=== PATIENT | female | born 1990 | race Caucasian/White ===

== ENCOUNTER 2018-03-05 18:54 | Emergency (ER) | payer SELFPAY | END 2018-03-05 19:23 | disposition home or self-care (01) | LOC: SCSER 18:54 | DX: M54.5 Low back pain (principal); F17.210 Nicotine dependence, cigarettes, uncomplicated | CPT/HCPCS: 99282 ==

== ENCOUNTER 2020-10-26 10:18 | Inpatient (IN) | payer BC, SELFPAY ==
[2020-10-26] MEDS ORDERED: HYDROcodone/Acetaminophen 5/325 mg Tablet ONE (12:38)
[2020-10-26] MEDS ORDERED: Dexamethasone 10 MG/ML VIAL ONE (12:38)
[2020-10-26] MEDS ORDERED: Diazepam 5 MG TAB ONE (12:38)
[2020-10-26] MEDS ORDERED: Fentanyl 100 MCG/2 ML VIAL ONE ×2 (13:49→14:58)
[2020-10-26] MEDS ORDERED: Ketorolac Tromethamine 30 MG/ML VIAL ONE (13:49)
[2020-10-26] MEDS ORDERED: Acetaminophen 650 MG Suppository PR PRN (19:05)
[2020-10-26] MEDS ORDERED: Bisacodyl 10 MG SUPP PR PRN (19:05)
[2020-10-26 20:00] LABS: #Basophils 0.1 thou/uL (0.0-0.2); #Lymphocytes 1.1 thou/uL (1.20-3.40); #Monocytes 0.1 thou/uL (0.11-0.59); %Basophils 0.8 % (0.0-1.0); %Eosinophils 0.2 % (0.0-10.0); %Monocytes 0.5 % (0.0-10.0); %Neutrophils 88.5 % (42.0-75.0); Hemoglobin 15.7 g/dL (12.0-16.0); Mean Corpuscular Hemoglobin 29.6 pg (27.0-31.0); Mean Corpuscular Volume 92.6 fL (78.0-98.0); Mean Platelet Volume 11.6 fL (7.4-10.4); Platelet Count 162 thou/uL (130-400); RBC Distribution Width 13.2 % (11.5-14.5); Red Blood Cell (RBC) Count 5.31 mill/uL (4.20-5.40); White Blood Cell (WBC) Count 11.3 thou/uL (4.8-10.8)
[2020-10-26 20:19] LABS: ALT (SGPT) 33 U/L (8-55); AST (SGOT) 22 U/L (5-34); Albumin 4.1 g/dL (3.5-5.0); Alkaline Phosphatase 115 U/L (40-110); Anion Gap 12 mmol/L (10-20); BUN (Urea Nitrogen) 12 mg/dL (7.0-18.7); Bilirubin, Total 0.3 mg/dL (0.2-1.2); Calc. Creatinine Clearance 0 mL/min (70-130); Calcium 8.7 mg/dL (7.8-10.44); Carbon Dioxide 21 mmol/L (22-29); Chloride 107 mmol/L (98-107); Globulin 3.4 g/dL (2.4-3.5); Glucose 143 mg/dL (70-105); Magnesium 2.2 mg/dL (1.6-2.6); Potassium 4.2 mmol/L (3.5-5.1); Protein, Total 7.5 g/dL (6.0-8.3); Sodium 136 mmol/L (136-145)
[2020-10-26] MEDS: Sodium Chloride 0.9% 1,000 ML IV SCH (22:28)
[2020-10-26] MEDS: Methocarbamol 500 MG TAB PO PRN (22:28)
[2020-10-26] MEDS: Famotidine/PF 20 mg/2ml Vial SLOW IVP SCH (22:29)
[2020-10-26] MEDS ORDERED: Fentanyl 100 MCG/2 ML VIAL SLOW IVP SCH (23:30)
[2020-10-26] MEDS: Ketorolac Tromethamine 30 MG/ML VIAL IVP SCH (23:38)
[2020-10-27] MEDS: Ketorolac Tromethamine 30 MG/ML VIAL IVP SCH ×4 (05:24→23:52)
[2020-10-27] MEDS: Methocarbamol 500 MG TAB PO PRN ×2 (06:03→21:45)
[2020-10-27 07:44] LABS: #Lymphocytes 1.3 thou/uL (1.20-3.40); #Monocytes 0.4 thou/uL (0.11-0.59); %Basophils 0.3 % (0.0-1.0); %Eosinophils 0.2 % (0.0-10.0); %Lymphocytes 13.6 % (21.0-51.0); %Monocytes 4.3 % (0.0-10.0); %Neutrophils 81.6 % (42.0-75.0); Hemoglobin 14.5 g/dL (12.0-16.0); Mean Corpuscular HGB CONC 31.3 g/dL (32.0-36.0); Mean Corpuscular Hemoglobin 28.6 pg (27.0-31.0); Mean Corpuscular Volume 91.5 fL (78.0-98.0); Platelet Count 166 thou/uL (130-400); RBC Distribution Width 13.1 % (11.5-14.5); Red Blood Cell (RBC) Count 5.06 mill/uL (4.20-5.40); White Blood Cell (WBC) Count 9.9 thou/uL (4.8-10.8)
[2020-10-27 08:04] LABS: ALT (SGPT) 24 U/L (8-55); AST (SGOT) 16 U/L (5-34); Albumin 3.7 g/dL (3.5-5.0); Alkaline Phosphatase 98 U/L (40-110); Anion Gap 12 mmol/L (10-20); BUN (Urea Nitrogen) 14 mg/dL (7.0-18.7); Bilirubin, Total 0.2 mg/dL (0.2-1.2); Calc. Creatinine Clearance 0 mL/min (70-130); Calcium 8.6 mg/dL (7.8-10.44); Carbon Dioxide 18 mmol/L (22-29); Chloride 110 mmol/L (98-107); Glucose 122 mg/dL (70-105); Potassium 4.3 mmol/L (3.5-5.1); Protein, Total 6.7 g/dL (6.0-8.3); Sodium 136 mmol/L (136-145)
[2020-10-27] MEDS: Sodium Chloride 0.9% 1,000 ML IV SCH ×3 (08:50→23:47)
[2020-10-27] MEDS: Famotidine/PF 20 mg/2ml Vial SLOW IVP SCH ×2 (08:51→21:05)
[2020-10-27] MEDS: Cyclobenzaprine 10 MG TAB PO PRN ×2 (11:25→18:54)
[2020-10-27] MEDS: Gabapentin 100 MG CAP PO SCH ×2 (14:02→21:04)
[2020-10-27 16:14] LABS: SARS-CoV-2 PCR NAA for Saliva Not Detected (NotDetected)
[2020-10-27] MEDS: Acetaminophen 325 MG TAB PO PRN (21:08)
[2020-10-28] MEDS: Sodium Chloride 0.9% 1,000 ML IV SCH ×3 (02:23→17:34)
[2020-10-28 03:43] LABS: Hemoglobin 13.7 g/dL (12.0-16.0); Mean Corpuscular HGB CONC 32.2 g/dL (32.0-36.0); Mean Corpuscular Volume 93.4 fL (78.0-98.0); Platelet Count 150 thou/uL (130-400); RBC Distribution Width 13.2 % (11.5-14.5); Red Blood Cell (RBC) Count 4.55 mill/uL (4.20-5.40); White Blood Cell (WBC) Count 10.6 thou/uL (4.8-10.8)
[2020-10-28 03:51] LABS: Lactic Acid 1.5 mmol/L (0.5-2.2)
[2020-10-28] MEDS: Methocarbamol 500 MG TAB PO PRN ×2 (03:54→20:35)
[2020-10-28] MEDS: Acetaminophen 325 MG TAB PO PRN (03:54)
[2020-10-28 03:56] LABS: #Basophils 0.1 thou/uL (0.0-0.2); #Lymphocytes 3.3 thou/uL (1.20-3.40); #Monocytes 0.7 thou/uL (0.11-0.59); #Neutrophils 6.5 thou/uL (1.40-6.50); %Basophils 0.8 % (0.0-1.0); %Eosinophils 0.3 % (0.0-10.0); %Lymphocytes 30.8 % (21.0-51.0); Large Platelets SLIGHT; MDiff Complete? YES; Platelet Morphology Comment Appears Adequate
[2020-10-28 04:10] LABS: ALT (SGPT) 29 U/L (8-55); AST (SGOT) 21 U/L (5-34); Albumin 3.1 g/dL (3.5-5.0); Alkaline Phosphatase 82 U/L (40-110); Anion Gap 11 mmol/L (10-20); BUN (Urea Nitrogen) 15 mg/dL (7.0-18.7); Bilirubin, Total Less than 0.2 mg/dL (0.2-1.2); Calc. Creatinine Clearance 0 mL/min (70-130); Calcium 7.6 mg/dL (7.8-10.44); Carbon Dioxide 18 mmol/L (22-29); Chloride 113 mmol/L (98-107); Globulin 2.6 g/dL (2.4-3.5); Glucose 145 mg/dL (70-105); Magnesium 2.1 mg/dL (1.6-2.6); Potassium 4.1 mmol/L (3.5-5.1); Protein, Total 5.7 g/dL (6.0-8.3); Sodium 138 mmol/L (136-145)
[2020-10-28] MEDS: Ketorolac Tromethamine 30 MG/ML VIAL IVP SCH (05:30)
[2020-10-28] MEDS: Gabapentin 300 MG CAP PO SCH ×3 (08:35→20:33)
[2020-10-28] MEDS: HYDROcodone/Acetaminophen 5/325 mg Tablet PO PRN ×4 (08:36→23:42)
[2020-10-28] MEDS: Famotidine/PF 20 mg/2ml Vial SLOW IVP SCH ×2 (08:37→20:32)
[2020-10-28] MEDS: Senokot S 8.6-50 MG TAB PO SCH ×2 (08:37→20:36)
[2020-10-28] MEDS ORDERED: Dexamethasone 12 MG in Sodium Chloride 0.9% 50 ML IVPB SCH (09:00)
[2020-10-29] MEDS: Sodium Chloride 0.9% 1,000 ML IV SCH (03:41)
[2020-10-29] MEDS: Gabapentin 300 MG CAP PO SCH ×3 (08:02→21:24)
[2020-10-29] MEDS: HYDROcodone/Acetaminophen 5/325 mg Tablet PO PRN ×4 (08:03→21:36)
[2020-10-29] MEDS: Famotidine/PF 20 mg/2ml Vial SLOW IVP SCH ×2 (08:04→21:24)
[2020-10-29] MEDS: Senokot S 8.6-50 MG TAB PO SCH ×2 (08:09→21:23)
[2020-10-29] MEDS: Methocarbamol 500 MG TAB PO PRN ×3 (10:35→23:12)
[2020-10-29] MEDS ORDERED: Dexamethasone 10 MG/ML VIAL ONE (13:05)
[2020-10-29] MEDS ORDERED: Lidocaine 2% PF 5 ML VIAL ONE (13:05)
[2020-10-29] MEDS ORDERED: Iopamidol-M 300 61% 15 ML VIAL ONE (13:05)
[2020-10-29] MEDS ORDERED: Bupivacaine 0.25% 10 ML VIAL ONE (13:05)
[2020-10-30] MEDS: Senokot S 8.6-50 MG TAB PO SCH ×2 (08:30→19:41)
[2020-10-30] MEDS: Gabapentin 300 MG CAP PO SCH ×3 (08:31→19:59)
[2020-10-30] MEDS: Famotidine/PF 20 mg/2ml Vial SLOW IVP SCH ×2 (08:31→19:59)
[2020-10-30] MEDS: HYDROcodone/Acetaminophen 5/325 mg Tablet PO PRN ×4 (08:43→22:30)
[2020-10-30] MEDS: Methocarbamol 500 MG TAB PO PRN ×3 (10:29→20:00)
[2020-10-31] MEDS: HYDROcodone/Acetaminophen 5/325 mg Tablet PO PRN ×4 (05:05→20:23)
[2020-10-31] MEDS: Methocarbamol 500 MG TAB PO PRN ×3 (05:48→16:21)
[2020-10-31 06:09] LABS: Hemoglobin 14.9 g/dL (12.0-16.0); Mean Corpuscular HGB CONC 31.5 g/dL (32.0-36.0); Mean Corpuscular Hemoglobin 28.6 pg (27.0-31.0); Mean Corpuscular Volume 90.8 fL (78.0-98.0); Mean Platelet Volume 12.3 fL (7.4-10.4); Platelet Count 147 thou/uL (130-400); RBC Distribution Width 13.1 % (11.5-14.5); Red Blood Cell (RBC) Count 5.23 mill/uL (4.20-5.40); White Blood Cell (WBC) Count 14.8 thou/uL (4.8-10.8)
[2020-10-31 06:11] LABS: Anion Gap 13 mmol/L (10-20); BUN (Urea Nitrogen) 19 mg/dL (7.0-18.7); Calc. Creatinine Clearance 0 mL/min (70-130); Calcium 7.9 mg/dL (7.8-10.44); Carbon Dioxide 21 mmol/L (22-29); Chloride 107 mmol/L (98-107); Glucose 101 mg/dL (70-105); Potassium 3.9 mmol/L (3.5-5.1); Sodium 137 mmol/L (136-145)
[2020-10-31 06:12] LABS: Lymphocytes 49 % (21-51); Monocytes 4 % (0-10); Neutrophil 47 % (42-75)
[2020-10-31 06:21] LABS: MDiff Complete? YES
[2020-10-31] MEDS: Famotidine/PF 20 mg/2ml Vial SLOW IVP SCH ×2 (08:47→20:23)
[2020-10-31] MEDS: Senokot S 8.6-50 MG TAB PO SCH ×2 (08:48→20:22)
[2020-10-31] MEDS: Gabapentin 300 MG CAP PO SCH ×3 (08:48→20:23)
[2020-11-01] MEDS: Cyclobenzaprine 10 MG TAB PO PRN ×2 (00:11→12:11)
[2020-11-01] MEDS: HYDROcodone/Acetaminophen 5/325 mg Tablet PO PRN ×6 (00:11→22:02)
[2020-11-01] MEDS: Senokot S 8.6-50 MG TAB PO SCH ×2 (08:18→20:43)
[2020-11-01] MEDS: Gabapentin 300 MG CAP PO SCH ×3 (08:18→20:43)
[2020-11-01] MEDS: Famotidine/PF 20 mg/2ml Vial SLOW IVP SCH ×2 (08:19→20:43)
[2020-11-01] MEDS: Methocarbamol 500 MG TAB PO PRN ×3 (10:08→20:43)
[2020-11-01] MEDS ORDERED: Sodium Chloride 0.9% 500 ML IV SCH (21:30)
[2020-11-01] MEDS: Sodium Chloride 0.9% 1,000 ML IV SCH (22:03)
[2020-11-02] MEDS: Famotidine/PF 20 mg/2ml Vial SLOW IVP SCH ×2 (08:33→20:15)
[2020-11-02] MEDS: HYDROcodone/Acetaminophen 5/325 mg Tablet PO PRN ×4 (08:33→21:29)
[2020-11-02] MEDS: Gabapentin 300 MG CAP PO SCH ×3 (08:33→20:14)
[2020-11-02] MEDS: Sodium Chloride 0.9% 1,000 ML IV SCH ×4 (08:34→12:21)
[2020-11-02] MEDS: Senokot S 8.6-50 MG TAB PO SCH ×2 (08:35→20:21)
[2020-11-02] MEDS: Methocarbamol 500 MG TAB PO PRN ×2 (09:59→20:14)
[2020-11-02] MEDS: Cyclobenzaprine 10 MG TAB PO PRN (14:50)
[2020-11-03] MEDS: Sodium Chloride 0.9% 1,000 ML IV SCH ×2 (03:42→12:43)
[2020-11-03] MEDS: Famotidine/PF 20 mg/2ml Vial SLOW IVP SCH (08:20)
[2020-11-03] MEDS: Gabapentin 300 MG CAP PO SCH ×2 (08:20→14:03)
[2020-11-03] MEDS: HYDROcodone/Acetaminophen 5/325 mg Tablet PO PRN ×2 (08:20→12:43)
[2020-11-03] MEDS: Senokot S 8.6-50 MG TAB PO SCH (08:21)
[2020-11-03] MEDS: Methocarbamol 500 MG TAB PO PRN (10:22)
[2020-11-03 15:04] VITALS: BP 105/64; TEMP 98.5
== END 2020-11-03 15:25 | disposition home or self-care (01) | DRG 552 ==
LOC: ERS 10:18 → ERHOLD 15:58 → T4-B 20:29 → OBSVTOIN 10-27 16:15
PROVIDERS: ADMIT Internal Medicine; ATTEND Internal Medicine
PROC: 3E0S33Z Introduction of Anti-inflammatory into Epidural Space, Percutaneous Approach (ICD-10-PCS; principal; 2020-10-29)
PROC: 3E0S3BZ Introduction of Anesthetic Agent into Epidural Space, Percutaneous Approach (ICD-10-PCS; 2020-10-29)
DX: M51.16 Intervertebral disc disorders with radiculopathy, lumbar region (principal); M48.061 Spinal stenosis, lumbar region without neurogenic claudication; Z20.822 Contact with and (suspected) exposure to COVID-19; E66.9 Obesity, unspecified; F17.210 Nicotine dependence, cigarettes, uncomplicated; R33.9 Retention of urine, unspecified; I95.2 Hypotension due to drugs; T40.415A Adverse effect of fentanyl or fentanyl analogs, initial encounter; Z88.8 Allergy status to other drugs, medicaments and biological substances; Z79.899 Other long term (current) drug therapy
CPT/HCPCS: 36415; 72131; 72146; 72148; 80048; 80053; 83605; 83735; 83880; 85025; 87635; 96374; 96375; 96376; G0378; J1100; J1885; J2001; J3010; Q9967; S0020; S0028; U0003; U0005

== ENCOUNTER 2022-06-24 21:18 | Emergency (ER) | payer OTHER, BC ==
[2022-06-24] MEDS ORDERED: Ketorolac Tromethamine 30 MG/ML VIAL ONE (21:57)
[2022-06-24] MEDS ORDERED: Acetaminophen 500 MG TAB ONE (21:57)
== END 2022-06-24 22:32 | disposition home or self-care (01) ==
LOC: ERS 21:18
DX: S93.402A Sprain of unspecified ligament of left ankle, initial encounter (principal); R03.0 Elevated blood-pressure reading, without diagnosis of hypertension; F17.210 Nicotine dependence, cigarettes, uncomplicated; W01.0XXA Fall on same level from slipping, tripping and stumbling without subsequent striking against object, initial encounter
CPT/HCPCS: 96372; J1885

== ENCOUNTER 2023-09-06 11:20 | Emergency (ER) | payer BC ==
[2023-09-06] MEDS ORDERED: Ondansetron PF 4 MG/2 ML Vial ONE (12:00)
[2023-09-06] MEDS ORDERED: Ondansetron ODT 4 MG TAB ONE (12:27)
[2023-09-06 12:36] LABS: Hematocrit 51.3 % (36.0-47.0); Hemoglobin 16.2 g/dL (12.0-16.0); Manual Diff?? YES; Mean Corpuscular HGB CONC 31.6 g/dL (32.0-36.0); Mean Corpuscular Hemoglobin 29.1 pg (27.0-31.0); Mean Corpuscular Volume 92.3 fl (78.0-98.0); Mean Platelet Volume 13.1 fL (7.4-10.4); Platelet Count 236 10x3/uL (130-400); RBC Distribution Width 13.4 % (11.5-14.5); Red Blood Cell (RBC) Count 5.56 mill/uL (4.20-5.40); White Blood Cell (WBC) Count 15.5 10x3/uL (4.8-10.8)
[2023-09-06 12:42] LABS: Delete Auto Diff?? YES
[2023-09-06 12:59] LABS: ALT (SGPT) 31 U/L (8-55); AST (SGOT) 23 U/L (5-34); Albumin 4.8 g/dL (3.5-5.0); Alkaline Phosphatase 98 U/L (40-110); Anion Gap 14 mmol/L (10-20); BUN (Urea Nitrogen) 9 mg/dL (7.0-18.7); Bilirubin, Total 0.5 mg/dL (0.2-1.2); Calc. Creatinine Clearance 0 mL/min (70-130); Calcium 9.4 mg/dL (7.8-10.44); Carbon Dioxide 18 mmol/L (22-29); Chloride 108 mmol/L (98-107); Estimated GFR 98; Globulin 3.4 g/dL (2.4-3.5); Glucose 102 mg/dL (70-105); Lipase 38 U/L (8-78); Potassium 4.2 mmol/L (3.5-5.1); Protein, Total 8.2 g/dL (6.0-8.3); Sodium 136 mmol/L (136-145)
[2023-09-06 13:13] LABS: Band 1 % (5-11); CellaVision Operator ID LAB.GE; Lymphocytes 12 % (21-51); Monocytes 5 % (0-10); Neutrophil 80 % (42-75); Platelet Adequacy Comment Platelets Normal; Polychromasia SLIGHT = 2-3 cells HPF (0-2); Total Cell Count 100
[2023-09-06 13:35] LABS: Bacteria/HPF None Seen HPF (None Seen); Bilirubin Negative (Negative); Blood, Urine Negative (Negative); CAUTI Indications for Culture Pelvic or flank pain; Clarity Clear (Clear); Glucose, Urine (Dipstick) Normal (Negative); Ketone, Urine 20 mg/dL (Negative); Leukocyte Negative Leu/uL (Negative); Nitrite Negative (Negative); Protein, Urine (Dipstick) Negative (Neg-Trace); RBC/HPF None Seen HPF (0-3); Specific Gravity, Urine 1.021 (1.002-1.036); Squamous Epithelial 0-3 HPF (0-3); Urobilinogen Normal mg/dL (Less than 2); WBC/HPF 0-3 HPF (0-3); pH, Urine 5.5 (5.0-9.0)
[2023-09-06 13:37] LABS: Urine Culture Reflex No No
[2023-09-06] MEDS ORDERED: Sucralfate 1 GM/10 ML UDCUP ONE (14:36)
[2023-09-06] MEDS ORDERED: Lidocaine 2% Viscous Solution 10 ML, Aluminum & Magnesium Hydroxide 30 ML SSW SCH (14:45)
== END 2023-09-06 15:40 | disposition home or self-care (01) ==
LOC: ERS 11:20
DX: R11.2 Nausea with vomiting, unspecified (principal); T50.995A Adverse effect of other drugs, medicaments and biological substances, initial encounter; F17.210 Nicotine dependence, cigarettes, uncomplicated
CPT/HCPCS: 36415; 80053; 81001; 83690; 85025; 96360; J2405; Q0162